=== PATIENT | female | born 1950 | race Caucasian/White ===

== ENCOUNTER → 2016-05-22 | Outpatient (CLI) | payer MEDICARE ==
[~2016-05-22] MED LIST: AMBIEN DPS10 MG PO; ASCORBIC ACID250 MG PO; DAILY MULTIPLE1 EAC1 PO; FLEXERIL DPS5 MG PO; HYDROCODONE 7.7.5 MG PO; NABUMETONE500 MG PO; PROBIOTIC1 EAC1 PO; VITAMIN D5000 UNIT PO
== END | disposition home or self-care (01) ==
LOC: RAD.S 07:30
DX: R06.02 Shortness of breath (principal)

== ENCOUNTER → 2016-05-27 | Outpatient (CLI) | payer MEDICARE | END | disposition home or self-care (01) | LOC: RAD.S 05-20 11:20 | DX: Z12.31 Encounter for screening mammogram for malignant neoplasm of breast (principal) ==